=== PATIENT | female | born 1990 | race Caucasian/White ===

== ENCOUNTER 2018-06-26 09:44 | Outpatient (CLI) | payer BC, SELFPAY ==
[2018-06-26 10:51] LABS: *AMPHETAMINES SCREEN URINE Negative (Negative); *BARBITURATES SCREEN URINE Negative (Negative); *BENZODIAZEPINES SCREEN URINE Negative (Negative); Cannabinoids THC Negative (Negative); Cocaine Screen,Urine Negative (Negative); METHADONE URINE SCREEN Negative (Negative); OPIATES URINE SCREEN Negative (Negative)
[2018-06-26 10:56] LABS: Tricyclic Antidepressants Negative (Negative)
[2018-06-26 11:23] LABS: TSH (W/Ref FT4) 3.42 uIU/mL (0.358-3.74)
[2018-06-26 11:27] LABS: Abs Immature Grans 0.02 k/cumm (0.0-0.09); Absolute Basophil Count 0.03 k/cumm (0.0-0.2); Absolute Eosinophil Count 0.04 k/cumm (0.0-0.7); Absolute Lymphocyte Count 1.79 k/cumm (1.2-3.4); Absolute Monocyte Count 0.65 k/cumm (0.11-0.7); Basophils % 0.3; Eosinophils % 0.4; HGB 13.5 g/dL (12.0-15.5); Immature Grans % 0.2; Lymphocytes % 17.8; Mean Corp. HGB Concentration 34.6 g/dL (32.0-36.0); Mean Corpuscular Hemoglobin 29.7 pg (27.0-33.0); Mean Corpuscular Volume 85.9 fL (80-95); Mean Platelet Volume 11.3 fL (8.0-11.0); Monocytes % 6.5; Neutrophils % 74.8; Platelet Count 193 x1000/uL (130-400); RBC 4.54 m/cumm (4.00-5.20); RBC Distribution Width 13.5 % (11.7-14.6); White Blood Cell Count 10.03 k/cumm (4.4-10.8)
[2018-06-27 10:37] LABS: HIV-1/2 Ag & Ab Screen Negative (NEGAT)
[2018-06-27 10:38] LABS: Hepatitis B Surface Ag Negative (NEGAT); Hepatitis C Ab w Rflx HCV PCR Negative (NEGAT)
[2018-06-27 13:06] LABS: Varicella IgG Antibody Positive
[2018-06-27 13:10] LABS: Rubella IgG Ab (UVM) Positive; Syphilis Serology (RPR) Negative (Negative)
[2018-07-02 15:29] LABS: Buprenorphine Negative; Norbuprenorphine Negative
== END 2018-06-26 10:04 ==
PROVIDERS: Visit Provider Nurse Practitioner
DX: Z34.91 Encounter for supervision of normal pregnancy, unspecified, first trimester (principal); Z11.4 Encounter for screening for human immunodeficiency virus [HIV]; Z11.59 Encounter for screening for other viral diseases; Z01.84 Encounter for antibody response examination; Z11.3 Encounter for screening for infections with a predominantly sexual mode of transmission
CPT/HCPCS: 80055; 80307; 86787; 86803; 86850; 86900; 86901; 87340; 87389; 84443; 86592; 86762; 87086

== ENCOUNTER 2018-06-26 10:55 | Outpatient (REF) | payer BC, SELFPAY ==
--- NOTE | 2018-06-26 10:00 | PAPFT_PTH ---
PATIENT: Angie Rojo LOC: [facility] U#:[id number] AGE/SX: 28/F ROOM: RE06/26/[address]: Lucila Solorio RN : 1990 BED: DIS: 06/26/2018 SPEC #: [id number] RECD: 06/26/18 12:44 STATUS: MEENA REQ #: [id number] SARAH: 06/26/18 10:[address]: Lucila Solorio DEPT: [facility] Cytology RECD BY: Sarah Gaytan Tissues: 1 - CX/ENDOCX FOR PAP SMEARS Procedures: PAP THIN PREP/UVM Screening Comments: [id number] (CHLAMYDIA/GC) (UNSATISFACTORY FOR EVALUATION)
[2018-06-27 13:53] LABS: Chlamydia Result Negative; GC Result Negative; Specimen Description SEE COMMENTS
== END 2018-06-26 11:15 ==
LOC: LBN 10:55
PROVIDERS: Visit Provider Advanced Practice Midwife
DX: Z12.4 Encounter for screening for malignant neoplasm of cervix (principal); Z11.51 Encounter for screening for human papillomavirus (HPV); Z11.3 Encounter for screening for infections with a predominantly sexual mode of transmission
CPT/HCPCS: 87491; 87591; 88142

== ENCOUNTER 2018-07-14 09:51 | Outpatient (CLI) | payer BC, SELFPAY ==
[2018-07-22 14:34] LABS: Misc Referral (MAYO) See Comments
[2018-07-23 00:37] LABS: Result Summary NEGATIVE; Specimen WB Whole Blood
== END 2018-07-14 10:11 ==
PROVIDERS: Visit Provider Advanced Practice Midwife
DX: Z34.92 Encounter for supervision of normal pregnancy, unspecified, second trimester (principal); Z13.228 Encounter for screening for other metabolic disorders; Z36.89 Encounter for other specified antenatal screening
CPT/HCPCS: 36415; 81329; 81220

== ENCOUNTER 2018-07-31 00:47 | Outpatient (CLI) | payer BC, SELFPAY ==
--- NOTE | 2018-07-31 15:23 | DI.US_ITS ---
SYMPTOMS/DIAGNOSIS: 18-WEEK ANATOMY SURVEY, Z34.90 OBSTETRICAL ULTRASOUND: Many abnormalities cannot be diagnosed. A normal exam does not exclude a congenital anomaly. Radiology No. [id number] LMP: Exam Date: 07/31/18 [facility] wks days on EDC ([facility]) 01/02/19 Confirmed: HISTORY: PREDICTED GESTATIONAL AGE NUMBER 17+6 weeks with a range of 16+6 weeks to 18+6 weeks. 1 Determined by___1STUS___LMP_X__HISTORY PLACENTA PRESENTATION Grade I Cephalic___ Anterior___Posterior___ Breech____ Right Left__X Transverse(head right___ Fundal_X__Low-lying___Previa___ Transverse(head left___ Varying__X____ BIOMETRY AMNIOTIC FLUID BPD: 40 mm 18+1 weeks Normal HC: 151 mm 18+1 weeks AC: 126 mm 18+1 weeks FL: 26 mm 17+6 weeks AMNIOTIC FLUID INDEX >26 WK CRL: mm weeks Cisterna Magna: 4 mm CI: 81 RUQ: LUQ Cerebellum: 1.7 cm EFW: 221 grams Percentile: 56th RLQ: LLQ Total: cms Composite AGE= 18+1 wks EDC by US: 12/31/18 BIOPHYSICAL PROFILE ANATOMY IDENTIFIED SCORE 0/2 Heart: 4-Chamber_X__Rate:BPM 143 LVOT:____X RVOT:___X Amniotic Fluid(>2cms)____ Stomach:____X___ Kidneys:___X____ Respirations (>30 secs) Bladder:___X Post. Fossa:___X Body Flex/Extension 3-vessel cord:___X____Ventricles:____X Cord insertion:__X___ Lips:_X___ Extremity Flex/Extension Spinal morphology:__X Nose:__X___ Total Score= Palate:__X NS=not seen COMMENTS: Routine examination. There is a single living intrauterine gestation. Estimated sonographic age is 18 weeks 1 day. No or placental abnormalities are identified. IMPRESSION: Single living intrauterine gestation. Estimated gestational age is 18 weeks 1 day.
[2018-08-04 12:32] LABS: AFP 61.2 ng/mL; Calculated age at EDD 27 years; Cigarette smoking status non-smoker; Down syndrome maternalage risk 1/920; GA used in risk estimate Dates estimate; INHIBIN 104 pg/mL; IVF Pregnancy No; Initial or repeat testing Initial testing; Insulin dependent diabetes No; Maternal Weight 122 lbs; Number of Fetuses 1; Physician Phone Number 802-748-7300; Prev Down(T21)/Trisomy Pregnan No; Prev Pregnancy w/NTD No; RECOMMENDED FOLLOW UP None.; Results Summary Normal risk; hCG, TOTAL 21.4 IU/mL; hCG, TOTAL MoM 0.75 MoM; uE3 1.31 ng/mL; uE3 MoM 0.91 MoM
== END 2018-07-31 01:07 ==
PROVIDERS: Visit Provider Advanced Practice Midwife
DX: Z34.92 Encounter for supervision of normal pregnancy, unspecified, second trimester (principal); Z36.89 Encounter for other specified antenatal screening
CPT/HCPCS: 36415; 81511; 76805

== ENCOUNTER 2018-10-17 02:52 | Outpatient (CLI) | payer BC, SELFPAY ==
[2018-10-17 08:18] LABS: HCT 35.3 % (36.0-46.0); Mean Corpuscular Hemoglobin 29.3 pg (27.0-33.0); Mean Corpuscular Volume 86.1 fL (80-95); Mean Platelet Volume 10.2 fL (8.0-11.0); Platelet Count 201 x1000/uL (130-400); RBC Distribution Width 12.1 % (11.7-14.6); White Blood Cell Count 8.48 k/cumm (4.4-10.8)
[2018-10-17 08:52] LABS: Glucose,1 Hr (Glucola) 106 mg/dL (80-140)
== END 2018-10-17 03:12 ==
PROVIDERS: Visit Provider Advanced Practice Midwife
DX: Z34.93 Encounter for supervision of normal pregnancy, unspecified, third trimester (principal)
CPT/HCPCS: 36415; 82950; 85027

== ENCOUNTER 2018-12-04 11:58 | Outpatient (REF) | payer BC, SELFPAY ==
[2018-12-04 13:32] LABS: *AMPHETAMINES SCREEN URINE Negative (Negative); *BARBITURATES SCREEN URINE Negative (Negative); *BENZODIAZEPINES SCREEN URINE Negative (Negative); Cannabinoids THC Negative (Negative); Cocaine Screen,Urine Negative (Negative); METHADONE URINE SCREEN Negative (Negative); OPIATES URINE SCREEN Negative (Negative)
[2018-12-04 13:34] LABS: Tricyclic Antidepressants Negative (Negative)
[2018-12-08 13:58] LABS: Buprenorphine Negative; Norbuprenorphine Negative
== END 2018-12-04 12:18 ==
LOC: LBN 11:58
PROVIDERS: Visit Provider Advanced Practice Midwife
DX: Z34.93 Encounter for supervision of normal pregnancy, unspecified, third trimester (principal); Z36.85 Encounter for antenatal screening for Streptococcus B
CPT/HCPCS: 80307; 87081

== ENCOUNTER 2018-12-11 16:23 | Outpatient (CLI) | payer BC, SELFPAY | END 2018-12-11 16:43 | PROVIDERS: Visit Provider Advanced Practice Midwife | DX: O36.8130 Decreased fetal movements, third trimester, not applicable or unspecified (principal); Z3A.37 37 weeks gestation of pregnancy | CPT/HCPCS: 59025 ==

== ENCOUNTER 2018-12-18 16:40 | Outpatient (CLI) | payer BC, SELFPAY | END 2018-12-18 17:00 | PROVIDERS: Visit Provider Advanced Practice Midwife | DX: O76 Abnormality in fetal heart rate and rhythm complicating labor and delivery (principal); Z3A.38 38 weeks gestation of pregnancy; O36.8130 Decreased fetal movements, third trimester, not applicable or unspecified ==

== ENCOUNTER 2018-12-19 08:45 | Observation (INO) | payer BC, SELFPAY ==
[2018-12-19 11:17] LABS: HCT 35.5 % (36.0-46.0); HGB 11.8 g/dL (12.0-15.5); Mean Corp. HGB Concentration 33.2 g/dL (32.0-36.0); Mean Corpuscular Hemoglobin 26.2 pg (27.0-33.0); Mean Corpuscular Volume 78.9 fL (80-95); Mean Platelet Volume 11.5 fL (8.0-11.0); Platelet Count 248 x1000/uL (130-400); RBC Distribution Width 12.9 % (11.7-14.6); White Blood Cell Count 12.05 k/cumm (4.4-10.8)
[2018-12-19] MEDS: Terbutaline 1 MG/ML VIAL 0.5 MG SC (12:08)
--- NOTE | 2018-12-19 13:27 | W.PM.OP ---
Date of service: 12/19/18 Operative Note DATE OF PROCEDURE: 12/19/18 PRE-OP DIAGNOSIS: Breech presentation POST-OP DIAGNOSIS: same PROCEDURE: Attempted external cephalic version SURGEON: Damari Yanez LEGAL WRITING PROFESSOR: Frederick Carbajal ANESTHESIA: none ESTIMATED BLOOD LOSS: 0 PATHOLOGY: none sent COMPLICATIONS: None Patient's condition: stable Indications: 28-year-old G1, P0 female currently 38 weeks estimated gestational age she was diagnosed with a breech presentation on 12/18/2018. Patient was counseled regarding an external cephalic version versus a primary delivery and opted for an external cephalic version. Procedure Description: Patient arrived on the center after being n.p.o. Informed consent was obtained. She was counseled regarding the risk of less than 5% chance of injury to the uterus or fetus. She is aware that there is possibility of emergent delivery for change in heart rate or nonreassuring surveillance. A saline lock and was inserted and lactated Ringer's IV solution at 125 cc an hour was started. The patient was placed on the heart rate monitor heart rate category 1 with occasional contractions. She received 0.5 mg of subcutaneous terbutaline. Patient was placed in the dorsal supine position and breech presentation was confirmed by use of the bedside ultrasound. spine to the maternal left. Amniotic fluid subjectively normal. Dr. Frederick Carbajal and I performed the procedure in the following manner; the presenting part was lifted out of the pelvis with gentle upward pressure and the head directed towards the maternal right; the head was successfully moved approximately 45 degrees and the procedure stopped because of patient discomfort. Reexamination of the head by ultrasound showed it had return to the zach breech presentation. heart rate was in the 130 range. Another attempt and is using the same technique and in and in the same direction was performed with no further movement of the head past 45 degrees and a counterclockwise direction. The heart rate was assessed noted to be in the 80 range. The procedure was stopped at that and the patient was placed in the left lateral position administered oxygen by facemask and IV fluid was increased rate of 500 cc an hour. The heart rate recovered after the 2 and half minutes to the baseline of 140. With moderate variability. The patient was kept in the left lateral position for another 15 minutes and then repositioned to the dorsal supine position. She was monitored for approximately 2 hours after the procedure heart rate remained reassuring. The patient has agreed to a scheduled delivery in the near future. She will be discharged home with follow-up with myself on 12/22/2018.
--- NOTE | 2018-12-19 13:37 | ROE_ITS ---
Date of service: 12/19/18 Operative Note DATE OF PROCEDURE: 12/19/18 PRE-OP DIAGNOSIS: Breech presentation POST-OP DIAGNOSIS: same PROCEDURE: Attempted external cephalic version SURGEON: Damari Yanez CASE LOADER OPERATOR: Frederick Carbajal ANESTHESIA: none ESTIMATED BLOOD LOSS: 0 PATHOLOGY: none sent COMPLICATIONS: None Patient's condition: stable Indications: 28-year-old G1, P0 female currently 38 weeks estimated gestational age she was diagnosed with a breech presentation on 12/18/2018. Patient was counseled regarding an external cephalic version versus a primary delivery and opted for an external cephalic version. Procedure Description: Patient arrived on the center after being n.p.o. Informed consent was obtained. She was counseled regarding the risk of less hector n 5% chance of injury to the uterus or fetus. She is aware that there is possibility of emergent delivery for change in heart rate or nonreassuring surveillance. A saline lock and was inserted and lactated Ringer's IV solution at 125 cc an hour was started. The patient was placed on the heart rate monitor heart rate category 1 with occasional contractions. She received 0.5 mg of subcutaneous terbutaline. Patient was placed in the dorsal supine position and breech presentation was confirmed by use of the bedside ultrasound. spine to the maternal left. Amniotic fluid subjectively normal. Dr. Frederick Carbajal and I performed the procedure in the following manner; the presenting part was lifted out of the pelvis with gentle upward pressure and the head directed towards the maternal right; the head was successfully moved approximately 45 degrees and the procedure stopped because of patient discomfort. Reexamination of the head by ultrasound showed it had return to the zach breech presentation. heart rate was in the 130 range. Another attempt and is using the same technique and in and in the same direction was performed with no further movement of the head past 45 degrees and a counterclockwise direction. The heart rate was assessed noted to be in the 80 range. The procedure was stopped at that and the patient was placed in the left lateral position administered oxygen by facemask and IV fluid was increased rate of 500 cc an hour. The heart rate recovered after the 2 and half minutes to the baseline of 140. With moderate variability. The patient was kept in the left lateral position for another 15 minutes and then repositioned to the dorsal supine position. She was monitored for approximately 2 hours after the procedure heart rate remained reassuring. The patient has agreed to a scheduled delivery in the near future. She will be discharged home with follow-up with myself on 12/22/2018.
== END 2018-12-19 14:40 | disposition home or self-care (01) ==
PROVIDERS: Advanced Practice Midwife; Admitting Provider Obstetrics & Gynecology; Visit Provider Obstetrics & Gynecology
DX: O32.1XX0 Maternal care for breech presentation, not applicable or unspecified (principal); Z3A.38 38 weeks gestation of pregnancy
CPT/HCPCS: 59412; 85027; 86850; 86900; 86901; G0378

== ENCOUNTER 2018-12-26 00:41 | Inpatient (IN) | payer BC, SELFPAY ==
[2018-12-26] MEDS: Lactated Ringers 1,000 ML 125 ML IV ×2 (01:15→04:15)
[2018-12-26 01:44] LABS: ROM Plus Positive
[2018-12-26 02:23] LABS: HCT 33.8 % (36.0-46.0); HGB 11.2 g/dL (12.0-15.5); Mean Corp. HGB Concentration 33.1 g/dL (32.0-36.0); Mean Corpuscular Hemoglobin 25.7 pg (27.0-33.0); Mean Corpuscular Volume 77.5 fL (80-95); Mean Platelet Volume 11.8 fL (8.0-11.0); Platelet Count 233 x1000/uL (130-400); RBC 4.36 m/cumm (4.00-5.20); RBC Distribution Width 13.1 % (11.7-14.6); White Blood Cell Count 10.15 k/cumm (4.4-10.8)
[2018-12-26] MEDS: Azithromycin 500 MG VIAL (02:30)
[2018-12-26] MEDS: Normal Saline 250 ML (02:31)
[2018-12-26] MEDS: Sodium Citrate 30 ML CUP PO (02:37)
[2018-12-26] MEDS: AZITHROMYCIN 500 MG in Normal Saline 250 ML 250 MG IVPB (03:00)
[2018-12-26] MEDS: CLINDAMYCIN 900 MG/50 ML BAG 50 MG IVPB (03:29)
--- NOTE | 2018-12-26 04:17 | W.PM.OP ---
Date of service: 12/26/18 Time of Service: 04:18 Operative Note DATE OF PROCEDURE: 12/26/18 PRE-OP DIAGNOSIS: PROM, Labor Breech presentation POST-OP DIAGNOSIS: same PROCEDURE: Primary low transverse section SURGEON: Sabrina Boothe ANESTHESIA: spinal ESTIMATED BLOOD LOSS: 250 PATHOLOGY: none sent COMPLICATIONS: None Patient was transported to: PACU Patient's condition: stable Implants: none Indications: Term Pregnacy Labor Prom Breech presentation Findings: viable female 6#6oz Apgars 9,9 Procedure Description: Patient to the operating the operating table in a position. Spinal acid was induced without difficulty. She was then placed on the operating table in the dorsal supine position with a left lateral tilt she was prepped in a normal fashion. Walker catheter was placed. A vaginal prep with Betadine was performed she was draped in a normal sterile fashion. After establishing adequate spinal anesthesia a Pfannenstiel incision was made approximately 2 cm above the symphysis pubis and carried down to the underlying fascia the fascia was And extended laterally sharply with the curved Umana scissors. The inferior aspect of the fascia was then grasped bilaterally with Anson clamps tented up and the rectus muscles dissected off sharply. Attention was then turned to the superior aspect and again in a similar fashion was grasped bilaterally with clamps tented up his muscles dissected dissected off sharply. Rectus was in the midline the peritoneum was entered sharply with Metzenbaum scissors this was extended superior and inferiorly with good visualization of the bladder. The bladder blade was positioned in the peritoneum was grabbed onto the potential with the bladder flap was sharply into the bladder blade was repositioned and the uterine segment previously incised to the underlying cavity. The fluid was clear. The 's was the left sacral posterior position. The was rotated to sacrum anterior to the 's breech was then to level delivery delivered infant was then turned clockwise in the left arm with chorionic clockwise and was delivered the head was delivered with a loss of movement. There was no vocal cord. The cord was clamped to cut the infant handed off to waiting PG&E. Cord blood was obtained placenta was expressed manually and the uterus was exteriorized and cleared of all clots and debris. The uterus was closed in 2 layers of 0 Vicryl the first layer single interrupted 10*running locked fashion second layer of 0 Vicryl was placed in an imbricating layer to achieve this is reinspected and found to hemostatic the uterus was returned to the abdomen the gutters were cleared of all clots and debris the incision was inspected and found to be hemostatic. 3 Montse clamps were used to grasp the patient was closed 2-0 Vicryl in a running fashion times hopefully oriented and found to be hemostatic the muscle was reapproximated with 3 interrupted sutures of 0 Vicryl. The fascia was closed from each apices with 0 Vicryl and tied in the middle subcuticular layer was copiously irrigated closed with 2 0 plain and the skin was closed with 4-0 Vicryl in a subcuticular fashion status lap needle count was correct x2 and the patient was taken to recovery room in stable condition this is a dictation please cc copy 1 to the patient's hospital record 1 to my office.
[2018-12-26] MEDS: Ketorolac 30 MG/ML VIAL IVP ×4 (04:25→22:06)
--- NOTE | 2018-12-26 04:26 | ROE_ITS ---
Date of service: 12/26/18 Time of Service: 04:18 Operative Note DATE OF PROCEDURE: 12/26/18 PRE-OP DIAGNOSIS: PROM, Labor Breech presentation POST-OP DIAGNOSIS: same PROCEDURE: Primary low transverse section SURGEON: Sabrina Boothe ANESTHESIA: spinal ESTIMATED BLOOD LOSS: 250 PATHOLOGY: none sent COMPLICATIONS: None Patient was transported to: PACU Patient's condition: stable Implants: none Indications: Term Pregnacy Labor Prom Breech presentation Findings: viable female 6#6oz Apgars 9,9 Procedure Description: Patient to the operating the operating table in a position. Spinal acid was induced without difficulty. She was then placed on the operating table in the dorsal supine position with a left lateral tilt she was prepped in a normal fashion. Walker catheter was placed. A vaginal prep with Betadine was performed she was draped in a normal sterile fashion. After establishing adequate spinal anesthesia a Pfannenstiel incision was made approximately 2 cm above the symphysis pubis and carried down to the underlying fascia the fascia was And extended laterally sharply with the curved Umana scissors. The inferior aspect of the fascia was then grasped bilaterally with Anson clamps tented up and the rectus muscles dissected off sharply. Attention was then turned to the superior aspect and again in a similar fashion was grasped bilaterally with clamps tented up his muscles dissected dissected off sharply. Rectus was separa jerica in the midline the peritoneum was entered sharply with Metzenbaum scissors this was extended superior and inferiorly with good visualization of the bladder. The bladder blade was positioned in the peritoneum was grabbed onto the potential with the bladder flap was sharply into the bladder blade was repositioned and the uterine segment previously incised to the underlying cavity. The fluid was clear. The infant's was the left sacral posterior position. The was rotated to sacrum anterior to the 's breech was then to level delivery delivered infant was then turned clockwise in the left arm with chorionic clockwise and was delivered the head was delivered with a loss of movement. There was no vocal cord. The cord was clamped to cut the handed off to waiting PG&E. Cord blood was obtained placenta was expressed manually and the uterus was exteriorized and cleared of all clots and debris. The uterus was closed in 2 layers of 0 Vicryl the first layer single interrupted 10*running locked fashion second layer of 0 Vicryl was placed in an imbricating layer to achieve this is reinspected and found to hemostatic the uterus was returned to the abdomen the gutters were cleared of all clots and debris the incision was inspected and found to be hemostatic. 3 Montse clamps were used to grasp the patient was closed 2-0 Vicryl in a running fashion times hopefully oriented and found to be hemostatic the muscle was reapproximated with 3 interrupted sutures of 0 Vicryl. The fascia was closed from each apices with 0 Vicryl and tied in the middle subcuticular layer was copiously irrigated closed with 2 0 plain and the skin was closed with 4-0 Vicryl in a subcuticular fashion status lap needle count was correct x2 and the patient was taken to recovery room in stable condition this is a dictation please cc copy 1 to the patient's hospital record 1 to my office.
[2018-12-26 05:10] VITALS: BP 109/74; PULSE 61; RESP 16; TEMP 36.3; O2SAT 99
[2018-12-26 07:13] LABS: HCT 31.9 % (36.0-46.0); HGB 10.4 g/dL (12.0-15.5); Mean Corp. HGB Concentration 32.6 g/dL (32.0-36.0); Mean Corpuscular Hemoglobin 25.4 pg (27.0-33.0); Mean Platelet Volume 11.9 fL (8.0-11.0); Platelet Count 220 x1000/uL (130-400); RBC 4.09 m/cumm (4.00-5.20); RBC Distribution Width 12.8 % (11.7-14.6); White Blood Cell Count 20.61 k/cumm (4.4-10.8)
[2018-12-26] MEDS: Normal Saline Flush 10 ML SYR IVP (10:08)
--- NOTE | 2018-12-26 17:32 | W.PM.PROGNOT ---
Date of Service Date of service: 12/26/18 Time of Service: 08:32 Assessment and Plan (1) delivery delivered: Current visit: Yes Status: Acute pod#0 DOING WELL advance diet discontinue mcduffie ambulate consult today Subjective Patient reports: tolerating liquids well Interval history since last seen: s/p PCS for breech presentation pain controlled duramorph/toradol no N/V initiating BF would like some help with positioning Exam Narrative Exam Narrative: comfortable Resp Effort & Inspection: normal respiratory effort Auscultation: clear to auscultation bilaterally Cardio Palpation: normal PMI Rate: regular rate Rhythm: regular rhythm Heart Sounds: S1 normal and S2 normal GI Inspection: normal to inspection Palpation: soft Other: Incision C/D/I Extrem General: normal to inspection and other (negITIVE Belén'S) Objective Objective Clinical Data: Abnormal lab results 12/26/18 12/26/18 Range/Units 02:10 06:46 WBC 20.61 H D (4.4-10.8) k/cumm Hgb 11.2 L 10.4 L (12.0-15.5) g/dL Hct 33.8 L 31.9 L (36.0-46.0) % MCV 77.5 L 78.0 L (80-95) fL MCH 25.7 L 25.4 L (27.0-33.0) pg MPV 11.8 H 11.9 H (8.0-11.0) fL Vital Signs Temperature 36.3 C L 12/26/18 05:10 Temperature Source Oral 12/26/18 05:10 Pulse 61 12/26/18 05:10 Respiratory Rate 16 12/26/18 05:10 Blood Pressure 109/74 12/26/18 05:10 Pulse Oximetry 99 12/26/18 05:10 Oxygen Delivery Method Room Air 12/26/18 05:10 Oxygen Flow Rate 0 12/26/18 05:10 Pain Level 5 12/26/18 15:31 Intake & Output 12/25/18 12/26/18 12/26/18 23:59 11:59 23:59 Intake Total 1600 / 1600 Output Total 400 / 400 Balance 1200 / 1200 Weight 67.132 kg Intake: IV 1600 / 1600 Output: Urine 150 / 150 Estimated Blood Loss 250 / 250 Other: Urine Color Pale Urine Appearance Clear Laboratory Results WBC 20.61 k/cumm (4.4-10.8) H D 12/26/18 06:46 RBC 4.09 m/cumm (4.00-5.20) 12/26/18 06:46 Hgb 10.4 g/dL (12.0-15.5) L 12/26/18 06:46 Hct 31.9 % (36.0-46.0) L 12/26/18 06:46 MCV 78.0 fL (80-95) L 12/26/18 06:46 MCH 25.4 pg (27.0-33.0) L 12/26/18 06:46 MCHC 32.6 g/dL (32.0-36.0) 12/26/18 06:46 RDW 12.8 % (11.7-14.6) 12/26/18 06:46 Plt Count 220 x1000/uL (130-400) 12/26/18 06:46 MPV 11.9 fL (8.0-11.0) H 12/26/18 06:46 Membranes Rupture Positive 12/26/18 01:25 Patient ABO/Rh A Positive 12/26/18 02:10 Antibody Screen Negative 12/26/18 02:10
[2018-12-26] MEDS: Acetaminophen 325 MG TAB 650 MG PO (18:21)
[2018-12-27] MEDS: Acetaminophen 325 MG TAB 650 MG PO ×4 (02:48→15:39)
[2018-12-27] MEDS: Ibuprofen 800 MG TAB PO ×2 (08:27→15:40)
[2018-12-27] MEDS: Docusate Sodium 100 MG CAP PO (20:38)
[2018-12-27] MEDS: oxyCODONE 5 mg/Acetaminophen 325 mg TAB PO (23:10)
[2018-12-28] MEDS: oxyCODONE 5 mg/Acetaminophen 325 mg TAB PO ×2 (04:20→23:00)
[2018-12-28] MEDS: Ibuprofen 800 MG TAB PO ×3 (04:20→18:21)
[2018-12-28 06:59] LABS: HGB 10.5 g/dL (12.0-15.5); Mean Corp. HGB Concentration 31.8 g/dL (32.0-36.0); Mean Corpuscular Hemoglobin 25.5 pg (27.0-33.0); Mean Corpuscular Volume 80.1 fL (80-95); Mean Platelet Volume 10.6 fL (8.0-11.0); Platelet Count 214 x1000/uL (130-400); RBC 4.12 m/cumm (4.00-5.20); RBC Distribution Width 13.5 % (11.7-14.6)
[2018-12-28] MEDS: Acetaminophen 325 MG TAB 650 MG PO ×3 (08:30→18:21)
--- NOTE | 2018-12-28 09:03 | DSE_ITS ---
Date of service: 12/29/18 Time of Service: 12:13 DS: Diagnosis Discharge Diagnosis (1) delivery delivered: Status: Acute Discharge Plan Disposition Patient Disposition: HOME Condition: Good Discharge Details Reason For Visit: RULE OUT RUPTURE OF MEMBRANES Admit Date/Time: 12/26/18 00:41 Admit Provider: Sabrina Boothe Attending Provider: Sabrina Boothe Primary Care Provider: None,None Hospital Course Hospital Course: Patient presented with spontaneous rupture of membranes on the morning of 12/26/2018. She underwent a unscheduled low transverse delivery without complications. Viable female infant weighing 6 pounds 6 ounces named Re. Postop course was uncomplicated. Initally planning to be discharged to home of POD3 she was having considerable discomfort from incision and needed additional assist with . By postop day #4 successfully pumping breast milk and had been assisted by [facility] hcm consultant. She was using ibuprofen and acetaminophen for pain control. She was discharged home with 5 tablets of Percocet 5/325 for break through pain and instructions to use [id number] NSAIDs as her primary method of pain control. She will be seen in [facility] in one and a half weeks for postop check. Will discuss Norethindrone OCPs at time of 6w visit with CNM service. Home Meds and New Rx's Prescriptions: No Action Gummy 400 mcg-35 mg -25 mg-5 mg tablet,chewable 1 tab PO RF: 0 ibuprofen 200 mg capsule 200 mg PO Q6H PRNRF: 0 acetaminophen [Tylenol] 325 mg capsule 325 mg PO ONCE PRNRF: 0 levonorg-eth estrad triphasic [Trivora (28)] 50-30 (6)/75-40 (5)/125-30(10) tablet 1 tab PO DAILY Qty: 28 RF: 12 Discharge Instructions Additional Instructions: Patient will follow-up with Dr. Yanez in approximately 1 1/2weeks for inspection of incision. Stand Alone Forms: BC Instructions, BC Discharge Instruc Activity:: Activity as Tolerated Equipment/Supplies:: No Equipment Needed Diet:: As Tolerated Discharge Orders Discharge Orders: Discharge Order (Routine); Ordered 12/29/18 Ordered By: Damari Yanez Discharge Data Discharge Date/Time-TO BE ENTERED AT DEPARTURE: 12/29/18 13:35 Exam Const General: no acute distress Orientation: alert, awake and oriented x3 Chest Breast inspection: normal inspection of the breasts Resp Effort & Inspection: normal respiratory effort Auscultation: clear to auscultation bilaterally Cardio Rate: regular rate Rhythm: regular rhythm GI Inspection: normal to inspection and scar (Well approximated without erythema or induration) Palpation: soft, mass (Uterus is involuting appropriately) and tender (Appropriate mild tenderness.) General: deferred Skin General skin exam: no rashes or lesions noted Extrem General: full ROM, capillary refill normal, no calf tenderness and edema (1+ pretibial tibial bilateral edema) Psych Appearance: grossly normal Mental Status: mental status grossly normal Speech and Movement: speech and movement normal Mood: congruent mood Affect: normal affect DS: Data Vitals/I&O Vitals and I&O: Vital Signs Temperature 97.3 F L 12/26/18 05:10 Temperature Source Oral 12/26/18 05:10 Pulse 61 12/26/18 05:10 Respiratory Rate 16 12/26/18 05:10 Blood Pressure 109/74 12/26/18 05:10 Pulse Oximetry 99 12/26/18 05:10 Oxygen Delivery Method Room Air 12/26/18 05:10 Oxygen Flow Rate 0 12/26/18 05:10 Pain Level 4 12/28/18 08:30 Labs on day of discharge: Labs from last 24 hours 12/28/18 06:47 WBC 10.30 RBC 4.12 Hgb 10.5 L Hct 33.0 L MCV 80.1 MCH 25.5 L MCHC 31.8 L RDW 13.5 Plt Count 214 MPV 10.6 PFSH Medical History (Updated 02/13/19 @ 12:52 by Lucila Solorio CNM) Pain on intercourse (Resolved) Positive test (Acute) Surgical History (Updated 12/28/18 @ 09:06 by Damari Yanez MD) History of delivery (Chronic) 12/26/2018. LTCS. Breech presentation. Tucker bryant:. Social History (Updated 12/28/18 @ 09:09 by Damari Yanez MD) Smoking/Tobacco Use Status: Never Alcohol Intake: current Alcohol Intake frequency: a few times a month Drug use: Never Substance use type: does not use Household members: spouse and other Details: H-Anita Chase-Re. Patient has children from a previous relationship Number of Children: 1 Female Reproductive History Menstrual control method: none History History 1 Para 1 Hx # Term Pregnancies 0 Multiple births 0 Hx # Pregnancies 0 Ectopic pregnancies 0 AB induced 0 Hx Number of Living Children 1 AB spontaneous 0 Past Pregnancies Del. Date GA/Weeks # Outcome [facility] Successful 6 lb 6 oz Female K Tl Delivery Date: 12/26/18 LTCS. Previously diagnosed breech presentation with an unsuccessful ECV. Spontaneous labor a week prior to scheduled . 'Re'. Damari Yanez
[2018-12-29] MEDS: Ibuprofen 800 MG TAB PO (06:05)
[2018-12-29] MEDS: Acetaminophen 325 MG TAB 650 MG PO (06:05)
--- NOTE | 2019-01-01 13:44 | ROE_ITS ---
REPORT OF OPERATIVE PROCEDURE DATE OF PROCEDURE December 26, 2018 PREOPERATIVE DIAGNOSES Prolonged labor, breech presentation. POSTOPERATIVE DIAGNOSES Prolonged labor, breech presentation. PROCEDURE Primary low transverse caesarean section. SURGEON Sabrina Boothe M.D. ANESTHESIA Spinal. ESTIMATED BLOOD LOSS 250 cc PATHOLOGY None. COMPLICATIONS None. DISPOSITION Transported to PACU in stable condition. IMPLANTS None. INDICATIONS Term and labor prolonged, breech presentation. FINDINGS Viable female , 6 pounds, 6 ounces, Apgars 9 and 9. PROCEDURE DESCRIPTION The patient was taken to the Operating Room and properly identified. She was then placed on the Opera ting Table in the dorsal supine position, then was placed in the seated position and Spinal anesthesi a was induced without difficulty. She was then placed on the Operating Table in the dorsal supine po sition with a left lateral tilt. She was prepped and draped in normal sterile fashion. A Walker cathet er was placed. A vaginal prep with Betadine was performed. SCDs boots were placed. After establishing adequate spinal anesthesia. A formal time-out procedure was then performed confirming patient and p rocedure. A Pfannenstiel incision was made approximately 2 centimeters above the symphysis pubis, and carried d own to underlying fascia. The fascia was nicked in the midline and extended laterally with the curved Umana scissors. The inferior aspect of the fascia was then grasped bilaterally with the Peter clamps , tented up and the rectus muscles dissected off sharply. Attention was then turned to the superior aspect, and again, in a similar fashion, it was grasped gl aterally with the Peter clamps, tented up and the rectus muscles dissected off sharply. The rectus muscles were in the midline and the peritoneum was entered bluntly. This was extended supe rior and then inferiorly with good visualization of the bladder. The bladder blade was then positione d. The vesicouterine peritoneum was grasped with the Pick- Ups, tented up and entered sharply. The b ladder flap was then created both digitally and sharply with the Metzenbaum scissors. The bladder vasquez de was re-positioned and the lower uterine segment was transversely incised. The uterine incision wa s manually extended. The surgeon reached her hand into the uterine cavity and the was rotated from sacrum posterior to sacrum anterior, and was delivered to the level of the shoulders. The infant was then turned clockwise and the left arm was delivered and then turned counter clockwise and the r ight arm was delivered without any difficulty. The infant's head was delivered without nuchal cord by Mauriceau maneuver. The cord was clamped x2, cut and the infant was handed off to the waiting M.D. The uterus was exteriorized and cleared of all clots and debris. The uterus was closed in two layer s of #0 Vicryl. The first layer a single running suture of #0-Vicryl in a locked fashion, and a secon d layer of #0-Vicryl was placed in an imbricating fashion to achieve hemostasis. The incision was re- inspected and found to be hemostatic. The uterus was returned to the abdomen. The gutters were cleare d of clots and debris. The uterine incision was inspected and found to be hemostatic. Three Montse cla mps were used to grasp the peritoneum, and the peritoneum was closed with #2-0 Vicryl in a running fa shion. The rectus muscles were closed with #0-Vicryl in an interrupted fashion. The muscle and subfas cial layer were hemostatic. The fascia was then closed from each apices with #0-Vicryl and tied in t he middle. The subcuticular layer was copiously irrigated and closed with #2-0 plain. The skin was c losed with #4-0 Vicryl in subcuticular fashion. Sponge, lap, needle and instrument counts were correc t x2 and the patient was taken to the Recovery Room in stable condition. CC: [facility]
== END 2018-12-29 13:35 | disposition home or self-care (01) | DRG 788 ==
PROVIDERS: Obstetrics & Gynecology Gynecology; Admitting Provider Obstetrics & Gynecology; Visit Provider Obstetrics & Gynecology
PROC: 10D00Z1 Extraction of Products of Conception, Low, Open Approach (ICD-10-PCS; CPT 59514; principal; 2018-12-26 02:50)
DX: O42.02 Full-term premature rupture of membranes, onset of labor within 24 hours of rupture (principal); O32.1XX0 Maternal care for breech presentation, not applicable or unspecified; Z3A.39 39 weeks gestation of pregnancy; Z37.0 Single live birth; G47.33 Obstructive sleep apnea (adult) (pediatric); O92.79 Other disorders of lactation; G89.18 Other acute postprocedural pain; Z67.10 Type A blood, Rh positive
CPT/HCPCS: 59514; 36415; 84112; 85027; 86850; 86900; 86901; NC; J0456; J1885; J2370; J2405; J2590; J3010; J3490

== ENCOUNTER 2019-02-13 11:33 | Outpatient (REF) | payer BC, SELFPAY ==
--- NOTE | 2019-02-13 10:55 | PAPFT_PTH ---
PATIENT: Angie Rojo LOC: [facility] U#:[id number] AGE/SX: 28/F ROOM: RE02/13/[address]: Lucila Solorio RN : 1990 BED: DIS: 02/13/2019 SPEC #: [id number] RECD: 02/13/19 12:48 STATUS: MEENA REQ #: [id number] SARAH: 02/13/19 10:[address]: Lucila Solorio DEPT: [facility] Cytology RECD BY: Sarah Gaytan ENTERED: 02/13/19 12:49 SP TYPE: PAPFT EBONIE DR: Lelo Tissues: 1 - CX/ENDOCX FOR PAP SMEARS Procedures: PAP THIN PREP/UVM Screening Comments: [id number]
== END 2019-02-13 11:53 ==
LOC: LBN 11:33
PROVIDERS: Visit Provider Advanced Practice Midwife
DX: R10.2 Pelvic and perineal pain (principal); Z12.4 Encounter for screening for malignant neoplasm of cervix
CPT/HCPCS: 88142; 87086

== ENCOUNTER 2019-12-17 18:55 | Emergency (ER) | payer BC, SELFPAY ==
[2019-12-17] VITALS (16 sets, daily range): BP systolic 97–128; BP diastolic 49–95; PULSE 61–158; RESP 11–31; TEMP 36.6–36.7; O2SAT 96–100
--- NOTE | 2019-12-17 19:42 | DI.RAD_ITS ---
EXAM: XR PORTABLE CHEST AP CLINICAL HISTORY: SOB. TECHNIQUE: 2D digital imaging was performed. COMPARISON: No exams were available for comparison FINDINGS: LUNGS: Clear. No pleural abnormality seen. HEART: Normal. MEDIASTINUM: Normal. OTHER FINDINGS: None. IMPRESSION: No acute pulmonary findings. DATA REPOSITORY: RADIATION DOSE DELIVERED:
--- NOTE | 2019-12-17 19:48 | W.ED.GENAD ---
Discharge Plan Disposition Patient Disposition: HOME Condition: Stable Discharge Details Chief Complaint: SOB Clinical Impression: SOB (shortness of breath) Primary Care Provider: [facility] Provider: Joanna Campo Home Meds and New Rx's Prescriptions: No Action levonorg-eth estrad triphasic [Trivora (28)] 50-30 (6)/75-40 (5)/125-30(10) tablet 1 tab PO DAILY Qty: 28 RF: 12 Discharge Instructions Instructions: Dyspnea (ED) Additional Instructions: Drink plenty of fluids. Rest activities as tolerated. Your evaluation today is quite reassuring. Please make prompt follow-up with PCP. For consideration of echocardiogram Nothing to indicate blood clot in your lung. Your thyroid function was minimally elevated, please follow-up with your primary care doctor for this finding. Have outpatient Covid test as discussed. Please plan to convalesce at home until your results have returned. Return for any worsening, concerns or alarming symptoms sooner if needed Medical Decision Making Is a 29-year-old patient presenting to the emergency room for complaints of shortness of breath. Please see HPI for further details of history. Patient has had 2 weeks of shortness of breath. Was seen at PCP office and had a drop in her oxygen saturation when ambulating and increasing heart rate. Patient sent to ER for further evaluation. Patient does report significant increase in stress recently. Patient is reporting some anxiety although unsure whether anxiety is related to her shortness of breath. Patient does have a just shy 1-year-old child at home. Patient is currently taking control. Denies any concern of . Patient does report mild intermittent heart fluttering. Denies obvious energy change. Patient denies any other concerns or complaints. Benign physical exam. Nursing staff did have patient not in place for several minutes while on O2 saturation when she first arrived. Patient did desaturate to 89% and had a heart rate increased to 140. Initial vital signs noted to be normal. We will plan to check d-dimer as well as baseline labs and TSH. Will check portable chest. Patient denies any other associated Covid symptoms. Patient agrees with this plan of care. Ycfia-sa-viij testing negative Patient's EKG reveals a heart rate of 87, sinus rhythm, and occasional ectopic ventricular beat. Patient has a QTC of 452. right atrial enlargement reviewed with Dr. Celeste. Patient's portable chest x-ray reveals no acute cardiopulmonary finding. Patient's initial labs reveal normal troponin. No leukocytosis. Mild low potassium. D-dimer normal. TSH noted to be 5.81 however free T4 1.07. Patients vital signs remained normal on the monitor. Spoke with Dr. Hathaway regarding patient's care and vital sign changes noted at PCP office and here strongly recommends obtaining CTA despite d-dimer as d-dimer could be falsely reassuring. Spoke with patient who is willing to stay for recommended CTA. CTA unremarkable for acute findings. No evidence of acute pulmonary embolism, no aortic changes. No pneumothorax, pleural effusion or signs of infection. No cardiomegaly. This again was discussed with Dr. Hathaway who also reviewed patient's EKG. Recommends follow-up with PCP for consideration of echocardiogram as an outpatient. Does not feel patient needs Holter monitor this evening. Recommends discharge home at this time. Discussed with patient who feels comfortable with discharge plan at this time. We will plan to follow-up with PCP. Patient will have Covid testing in the tent tomorrow. Patient has no evidence of ACS at this time. Nothing to indicate pulmonary embolism as etiology of patient's shortness of breath. Given patient's vital sign changes patient differential diagnosis does include pulmonary hypertension. Patient does have a history of sleep apnea and EKG consistent with right atrial enlargement. Discussed this with patient. Did recommend follow-up with PCP for further evaluation as an outpatient. Patient agrees with this plan of care. The patient was stable and requested discharge. Prior to discharge, my usual and customary return precautions were reviewed with the patient - this included follow-up instructions and reasons to return to the Emergency Department if conditions worsens, does not improve as expected, or other new concerns arise. HPI General Date/Time Provider Initiated Documentation: 12/17/19 18:57. HPI Narrative: This is a 29-year-old patient presenting the emergency room for complaints of shortness of breath for last 2 to 3 weeks. Patient was seen at PCP office prior to arrival had an ambulating oxygen saturation during which time her O2 sat dropped into the 60s and she became tachycardic. For this reason she was sent to the emergency room. Patient reports shortness of breath described as feeling as if she is getting 75% of her breath when at rest. Patient denies obvious exertional component. Denies chest pain. Denies any cough. Denies back pain. Denies abdominal pain, nausea or vomiting. Denies any fever, chills or ill feeling. Patient denies any lower leg swelling or pain recently. Patient reports no significant headache or dizziness. Patient does report she has had some difficulty sleeping in the last few weeks. Patient does report significant increase in stress recently and she is trying to sell her home and has a new baby at home almost 1 year old. Patient does report she has had some difficulty, restless sleeping. She typically sleeps with a CPAP which she has not been sleeping with recently as she finds that minimally effective. Patient does report she had a mild sensation of heart racing. No other concerns or complaints at this time. Related Data Home Medications Medication Instructions Recorded Confirmed levonorg-eth estrad triphasic 1 tab PO DAILY #28 tab 02/13/19 12/17/19 50-30 (6)/75-40(5)/125-30(10) tablet Previous Rx's Medication Instructions Recorded levonorg-eth estrad triphasic 1 tab PO DAILY #28 tab 02/13/19 50-30 (6)/75-40(5)/125-30(10) tablet Allergies Allergy/AdvReac Type Severity Reaction Status Date / Time amoxicillin Allergy Severe hives Verified 01/05/19 09:43 General Stated Complaint: SOB DARCY: 3 Review of Systems All systems reviewed & are unremarkable except as noted in HPI and below PFSH Medical History (Updated 12/17/19 @ 22:02 by GORDY Roche) Pain on intercourse (Resolved) Positive test (Acute) Surgical History (Updated 12/28/18 @ 09:06 by Damari Yanez MD) History of delivery (Chronic) 12/26/2018. [facility]. Breech presentation. Tucker bryant:. Social History (Updated 12/28/18 @ 09:09 by Damari Yanez MD) Smoking/Tobacco Use Status: Never Alcohol Intake: current Alcohol Intake frequency: a few times a month Drug use: Never Substance use type: does not use Household members: spouse and other Details: Keshia-Anita Chase-Re. Patient has children from a previous relationship Number of Children: 1 Female Reproductive History Menstrual control method: none History History 1 Para 1 Hx # Term Pregnancies 0 Multiple births 0 Hx # Pregnancies 0 Ectopic pregnancies 0 AB induced 0 Hx Number of Living Children 1 AB spontaneous 0 Past Pregnancies Del. Date GA/Weeks # Outcome Route Wgt Sex Labor Lgth Anesthesia Location Prov Complic 12/26/18 No Successful 2.892 kg Female [place] Delivery Date: 12/26/18 [facility]. Previously diagnosed breech presentation with an unsuccessful ECV. Spontaneous labor a week prior to scheduled . 'Re'. Damari Yanez Exam Narrative Exam Narrative: CONST: Healthy appearing patient, in no acute distress. Well hydrated. Alert and oriented. HENMT: Head nomocephalic, normal to inspection. Atraumatic. Hearing grossly normal. External ear canal no erythema or swelling. TM normal bilaterally. Nose normal to inspection. No rhinnorhea. Normal facial exam. Oral mucosa normal. Tounge normal. Dentition normal. Normal posterior oropharynx. Uvula midline. EYES: General normal appearance. Alignment normal. Eyelids normal. Conjunctiva normal. Sclera normal. PERRL. NECK: Normal visual inspection. FROM. No lymphadenopathy. Trachea midline. No Midline tenderness. CHEST: Normal insepection of the chest. RESP: Normal respiratory effort. Speaking full sentences. No cough. No wheezing. No retractions. Clear to auscaltation. Breath sound equal and present bilaterally. CARDIO: No JVD. Normal PMI. Regular Rate. Regular Rhythm. Normal peripheral pulses. GI: Normal inspection of abdomen. No distension. Soft. Nontender. Bowel sounds present in all 4 quadrants. No rebound. No gaurding. MUSCULOSKELETAL: Normal Gait. FROM of all extremities. Distal neurovascularly intact. Sensation intact distally. SKIN: Normal. Dry. No rashes. NEURO: Alert and awake. Speech clear. PSYCH: Normal affect. Cooperative. Course Vital Signs Vital signs: Vital Signs Temperature 36.6 C 12/17/19 19:02 Pulse 73 12/17/19 19:02 Respiratory Rate 18 12/17/19 19:02 Blood Pressure 128/86 12/17/19 19:02 Pulse Oximetry 98 12/17/19 19:02 Temperature 36.6 C 12/17/19 19:02 Temperature Source Skin 12/17/19 19:02 Pulse 73 12/17/19 19:02 Respiratory Rate 18 12/17/19 19:06 Respiratory Effort Non-Labored 12/17/19 19:06 Respiratory Depth Normal 12/17/19 19:06 Respiratory Pattern Normal 12/17/19 19:06 Blood Pressure 128/86 12/17/19 19:02 Pulse Oximetry 98 12/17/19 19:02 Oxygen Delivery Method Room Air 12/17/19 19:02 Oxygen Flow Rate 0 12/17/19 19:02 Lab/Test Results Lab/Test Results: POC- Test(urine) Negative
--- NOTE | 2019-12-17 19:54 | DI.VRAD_ITS ---
PROCEDURE INFORMATION: Exam: XR Chest, 1 View Exam date and time: 12/17/2019 7:43 PM Age: 29 years old Clinical indication: Shortness of breath TECHNIQUE: Imaging protocol: XR of the chest Views: 1 view. COMPARISON: No relevant prior studies available. FINDINGS: Lungs: Unremarkable. No consolidation. Pleural space: Unremarkable. No pleural effusion. No pneumothorax. Heart/Mediastinum: Unremarkable. No cardiomegaly. Bones/joints: Unremarkable for patient's age. IMPRESSION: No acute cardiopulmonary findings. Dictated and Authenticated by: Yaritza Sheriff MD. Ordering:VIRAL Marshall MD
[2019-12-17 19:58] LABS: ALT 24 U/L (14-59); AST 13 U/L (15-37); Abs Immature Grans 0.01 k/cumm (0.0-0.09); Absolute Basophil Count 0.03 k/cumm (0.0-0.2); Absolute Eosinophil Count 0.09 k/cumm (0.0-0.7); Absolute Lymphocyte Count 2.97 k/cumm (1.2-3.4); Absolute Monocyte Count 0.67 k/cumm (0.11-0.7); Absolute Neutrophil Count 4.09 k/cumm (1.2-6.7); Albumin 4.3 g/dL (3.4-5.0); Alkaline Phosphatase 48 U/L (46-116); Anion Gap 10.4 mmol/L (3-11); BUN 16 mg/dL (7-18); Basophils % 0.4; Bilirubin, Total 0.6 mg/dL (0.2-1.0); CO2 23.6 mmol/L (21.0-32.0); CREATININE 0.99 mg/dL (0.55-1.02); Calcium 9.2 mg/dL (8.5-10.1); Chloride 103 mmol/L (98-107); Eosinophils % 1.1; Glucose 98 mg/dL (74-106); HCT 39.8 % (36.0-46.0); HGB 13.4 g/dL (12.0-15.5); Immature Grans % 0.1 %; Lymphocytes % 37.8; Mean Corp. HGB Concentration 33.7 g/dL (32.0-36.0); Mean Corpuscular Hemoglobin 26.6 pg (27.0-33.0); Mean Platelet Volume 11.9 fL (8.0-11.0); Monocytes % 8.5; Neutrophils % 52.1; Platelet Count 276 x1000/uL (130-400); Potassium 3.2 mmol/L (3.5-5.1); RBC 5.04 m/cumm (4.00-5.20); RBC Distribution Width 14.9 % (11.7-14.6); Sodium 137 mmol/L (136-145); Total Protein 7.9 g/dL (6.4-8.2); Troponin I < 0.05 ng/mL (<0.06); White Blood Cell Count 7.86 k/cumm (4.4-10.8)
[2019-12-17 20:14] LABS: D-Dimer 328 ng/mlFEU (<500)
[2019-12-17 20:50] LABS: TSH (W/Ref FT4) 5.81 uIU/mL (0.36-3.74)
[2019-12-17 21:07] LABS: FREE T4 1.07 ng/dL (0.76-1.46)
[2019-12-17] MEDS: Normal Saline Flush 10 ML SYR IVP (22:42)
[2019-12-17] MEDS: Normal Saline - Diluent 50 ML VIAL IV (22:43)
[2019-12-17] MEDS: Omnipaque 350 MG/ML 100 ML BTL IJ (22:44)
--- NOTE | 2019-12-17 22:45 | DI.CT_ITS ---
EXAM: CT CHEST PE CTA CLINICAL HISTORY: SOB. TECHNIQUE: Imaging Protocol: Axial CT angiography was performed with multi-slice acquisition and mu lti-planar and/or 3D reconstructions. CONTRAST MATERIAL: Intravenous: Omnipaque 350 Contrast volume:structured data in ml COMPARISON: No exams were available for comparison FINDINGS: CT angiography of the chest was performed with intravenous infusion of 59 cc of Omnipaque 350. The lungs are clear. No pleural effusion. Tracheobronchial tree appears intact. No evidence of pulmonary embolic disease. Thoracic aorta is of normal, no thoracic aortic aneurysm or dissection, major branch vessels appear intact. No mediastinal or hilar adenopathy. Images obtained through the upper abdomen show unremarkable appearance of the visualized portions of the liver, spleen, pancreas, adrenals, and kidneys. IMPRESSION: Negative CT angiogram of the chest. No evidence of pulmonary embolic disease. RADIATION DOSE DELIVERED: 281.8mGy.cm Total DLP DATA REPOSITORY: All CT scans at this facility are submitted to the National Radiology Data Registry (NRDR) Dose Index Registry (DIR) with the [employer] (ACR). RADIATION OPTIMIZATION: All CT scans at this facility use at least one of these dose optimization te chniques: automated exposure control; mA and/or kV adjustment per patient size (includes targeted exa ms where dose is matched to clinical indication); or iterative reconstruction.
--- NOTE | 2019-12-17 23:00 | DI.VRAD_ITS ---
PROCEDURE INFORMATION: Exam: CT Angiography Chest With Contrast Exam date and time: 12/17/2019 10:19 PM Age: 29 years old Clinical indication: Shortness of breath TECHNIQUE: Imaging protocol: Computed tomographic angiography of the chest with intravenous contrast. 3D rendering: MIP and/or 3D reconstructed images were created by the technologist. Radiation optimization: All CT scans at this facility use at least one of these dose optimization techniques: automated exposure control; mA and/or kV adjustment per patient size (includes targeted exams where dose is matched to clinical indication); or iterative reconstruction. Contrast material: [id number]; Contrast volume: 59 ml; Contrast route: IN RT FOREARM 18G; COMPARISON: CR XR PORTABLE CHEST AP 10/19/2019 19:38 FINDINGS: Pulmonary arteries: No evidence for pulmonary embolus. Aorta: Unremarkable. No aortic aneurysm. No aortic dissection. Lungs: Unremarkable. No consolidation. No masses. Pleural space: Unremarkable. No pneumothorax. No pleural effusion. Heart: Unremarkable. No cardiomegaly. No pericardial effusion. Lymph nodes: Unremarkable. No enlarged lymph nodes. Bones/joints: Unremarkable for age. No acute fracture. Soft tissues: Unremarkable. IMPRESSION: No acute findings. Dictated and Authenticated by: Yaritza Sheriff MD. Ordering:VIRAL Marshall MD
== END 2019-12-17 23:40 | disposition home or self-care (01) ==
PROVIDERS: Emergency Provider Physician Assistant
DX: R06.02 Shortness of breath (principal); R00.0 Tachycardia, unspecified; R09.02 Hypoxemia; E87.6 Hypokalemia
CPT/HCPCS: 36415; 71275; 80053; 81025; 93005; 99285; 71045; 84439; 84443; 84484; 85025; 85379; 93010; J3490

== ENCOUNTER 2019-12-18 09:15 | Outpatient (CLI) | payer BC, SELFPAY ==
[2019-12-19 23:56] LABS: COVID-19 RT-PCR Result NEGATIVE (Negative)
== END 2019-12-18 09:35 ==
PROVIDERS: Visit Provider Physician Assistant
DX: Z11.59 Encounter for screening for other viral diseases (principal)
CPT/HCPCS: U0003

== ENCOUNTER 2020-01-28 01:28 | Outpatient (CLI) | payer BC, SELFPAY ==
--- NOTE | 2020-01-28 12:30 | DI.US_ITS ---
APPROVED REPORT EXAM: Comprehensive 2D, Doppler, and color-flow Echocardiogram Patient Location: Out-Patient Pre K Lead Teacher: Isis Adame RDCS (AE) Indications: SOB Other Information Study Quality: Good Conclusion Left Ventricle : The left ventricle is normal size. The left ventricular systolic function is normal. The left ventricular ejection fraction is within the normal range. There is normal left ventricular wall thickness. There is normal LV segmental wall motion. The left ventricular diastolic function is normal. LVEF is 55-60%. Right Ventricle : The right ventricle is normal size. The right ventricular systolic function is norm al. The RVSP is 21.1mmHg. Atria : The left atrium size is normal. The right atrium size is normal. Also: There are no hemodynamically significant valvular lesions. Great Vessels : IVC is normal in size and collapses >50% with inspiration. There is no prior study available for comparison. Please see remainder of results for further detail s. Wall motion Left Ventricle The left ventricle is normal size. The left ventricular systolic function is normal. The left ventric ular ejection fraction is within the normal range. There is normal left ventricular wall thickness. T here is normal LV segmental wall motion. The left ventricular diastolic function is normal. There is no ventricular septal defect visualized. LVEF is 55-60%. Right Ventricle The right ventricle is normal size. The right ventricular systolic function is normal. The RVSP is 21 .1mmHg. Atria The left atrium size is normal. The right atrium size is normal. The interatrial septum is intact wit h no evidence for an atrial septal defect. Aortic Valve The aortic valve is normal in structure. There is no aortic valvular stenosis. No aortic regurgitatio n is present. Mitral Valve The mitral valve is normal in structure. No evidence of mitral valve stenosis. Trace mitral regurgita tion. Tricuspid Valve The tricuspid valve is normal in structure. There is no tricuspid valve stenosis. Trace tricuspid reg urgitation. Pulmonic Valve The pulmonary valve is normal in structure. There is no pulmonic valvular stenosis. There is no pulmo alicja valvular regurgitation. Great Vessels The aortic root is normal in size. The ascending aorta is normal in size. Aortic arch is normal in ca liber. IVC is normal in size and collapses >50% with inspiration. Pericardium There is no pericardial effusion. There is no pleural effusion. 2D Dimensions IVSD d PLAX 0.71 cm F: 0.6-1.0 LV Vol A2C d MOD 66.5 mL LVPW d PLAX 0.73 cm F: 0.6 - 1.0 LV Vol A4C d MOD 66.8 mL LVID d PLAX 4.05 cm F: 3.8 - 5.2 LA vol/ BSA A2C s A-L 18.1 mL/m2 LVDs 2.70 cm F: 2.2 - 3.5 LA vol/ BSA A4C s A-L 20.0 mL/m2 Ao Root d 2.00 cm F: 2.7 - 3.3 LA Vol/ BSA Biplane s A-L 20.7 mL/m2 RA Area A4C 10.18 cm2 LA Area A4C s MOD 13.57 cm2 RA Vol/ BSA A4C s A-L 14.7 mL/m2 LA Area A2C s MOD 11.90 cm2 Ao Asc Diam d 2.30 cm F: 2.3 - 3.1 LV EF A4C MOD 55.7 % LV EF Teichholz 62.2 % LV EF A2C MOD 59.4 % LVEF (Llanos's) 57.83 % F: 54 - 74 LV EF Biplane MOD 57.8 % LV Volume 57.12 mL F: 46 - 106 SV 41.02 mL LV Volume Index 35.04 mL/m2 F: 29 - 61 SV Index 25.05 mL/m2 LV Vol Biplane MOD 70.9 mL FS 33.10 % M-Mode TAPSE 2.07 cm (M/F) >1.7 LV Diastology MV E' medial 0.137 (>0.07 m/s) E/A Ratio 1.5 LV E/e MED 7.45 (<14) MV E Vmax 1.03 (0.4-1.3 m/s) MV E' lateral 0.175 (>0.1 m/s) MV A Vmax 0.70 (0.4-1.3 m/s) LV E/e LAT 5.85 (<14) MV E/A Ratio 1.42 MV E/E' medial 7.50 MV E/E' lateral 5.87 Aortic Valve LVOT Area 2.66 cm2 AoV Area Vmax 2.28 cm2 LVOT Vmax 1.04 m/s AoV Area/ BSA (Vmax) 1.39 cm2/m2 LVOT Mean Jude. 0.72 m/s GIOVANNY Mean Jude. 2.43 cm2 LVOT Peak Grad 4.3 mmHg GIOVANNY Mean Jude. Index 1.48 cm2/m2 LVOT Mean Grad 2.4 mmHg LVOT VTI 0.215 m LVOT Diam s 1.80 cm AoV Vmax 1.21 m/s Velocity Ratio 0.85 AoV Mean Jude. 0.79 m/s AoV Peak Grad 5.9 mmHg LVOT SV 57.20 mL AoV Mean Grad 2.9 mmHg AoV VTI 0.244 m AoV Area VTI 2.34 cm2 AoV Area/ BSA (VTI) 1.43 cm/m2 Mitral Valve MV DT 177 (160-240 msec) MV PHT 51 msec MV Area PHT 4.29 cm2 Pulmonary Valve PV Vmax 1.17 (0.5-1.5 m/s) RVOT Peak Gr. 3.00 mmHg PV Peak Grad 5.4 mmHg RVOT Mean Gr. 1.30 mmHg PV Mean Grad 2.6 mmHg RVOT VTI 0.169 m PV VTI 0.233 m RVOT Vmax 0.87 m/s Tricuspid Valve TR Peak Grad 18.0 mmHg TR Vmax 2.13 m/s RA Pressure 3.00 mmHg RVSP (TR) 21.1 mmHg
== END 2020-01-28 01:48 ==
PROVIDERS: Visit Provider Physician Assistant Medical
DX: R06.02 Shortness of breath (principal)
CPT/HCPCS: 93306

== ENCOUNTER 2021-03-27 15:45 | Outpatient (REF) | payer BC, SELFPAY ==
[2021-03-27 18:20] LABS: *AMPHETAMINES SCREEN URINE Negative (Negative); *BARBITURATES SCREEN URINE Negative (Negative); *BENZODIAZEPINES SCREEN URINE Negative (Negative); Cannabinoids THC Negative (Negative); Cocaine Screen,Urine Negative (Negative); METHADONE URINE SCREEN Negative (Negative); OPIATES URINE SCREEN Negative (Negative)
[2021-03-27 18:24] LABS: Tricyclic Antidepressants Negative (Negative)
== END 2021-03-27 15:46 | disposition home or self-care (01) ==
LOC: LBN 15:45
PROVIDERS: Visit Provider Advanced Practice Midwife
DX: Z32.01 Encounter for pregnancy test, result positive (principal); Z34.91 Encounter for supervision of normal pregnancy, unspecified, first trimester
CPT/HCPCS: 80307; 87086

== ENCOUNTER 2021-04-10 19:58 | Outpatient (CLI) | payer BC, SELFPAY ==
[2021-04-12 15:00] LABS: Chlamydia Result Negative (Negative); GC Result Negative (Negative)
== END 2021-04-10 19:59 | disposition home or self-care (01) ==
LOC: LBO 19:59 → LBN 21:41
PROVIDERS: Visit Provider Advanced Practice Midwife
DX: Z11.8 Encounter for screening for other infectious and parasitic diseases (principal); Z34.91 Encounter for supervision of normal pregnancy, unspecified, first trimester
CPT/HCPCS: 87491; 87591

== ENCOUNTER 2021-05-08 02:29 | Outpatient (CLI) | payer BC, SELFPAY ==
[2021-05-08 13:19] LABS: Abs Immature Grans 0.03 10^3/uL (0.0-0.06); Absolute Lymphocyte Count 2.06 10^3/uL (1.2-3.4); Absolute Monocyte Count 0.57 10^3/uL (0.1-0.8); Absolute Neutrophil Count 8.85 10^3/uL (1.2-6.7); Basophils % 0.3; Eosinophils % 0.3; HCT 37.7 % (36.0-46.0); HGB 12.9 g/dL (11.2-15.7); Immature Grans % 0.3; Lymphocytes % 17.8; MCH 29.2 pg (27.0-33.0); MCHC 34.2 % (32.0-36.0); MCV 85.3 fL (80-95); MPV 10.7 fL (8.0-11.0); Monocytes % 4.9; Neutrophils % 76.4; Nucleated RBC 0 %; Platelet Count 211 10^3/uL (130-400); RBC 4.42 10^6/uL (3.93-5.22); RDW 13.2 % (11.7-14.6); RDW-SD 41.4 fL; WBC 11.59 10^3/uL (4.4-10.8)
[2021-05-08 13:23] LABS: Absolute Basophil Count 0.03 10^3/uL (0.0-0.2); Absolute Eosinophil Count 0.03 10^3/uL (0.0-0.7)
[2021-05-08 14:39] LABS: TSH (W/Ref FT4) 2.69 uIU/mL (0.36-3.74)
[2021-05-09 09:42] LABS: Hepatitis B Surface Ag Negative (Negative); Hepatitis C Ab w Rflx HCV PCR Negative (Negative)
[2021-05-09 10:11] LABS: HIV-1/2 Ag & Ab Screen Negative (Negative)
[2021-05-09 10:28] LABS: Varicella IgG Antibody Positive (See Note)
[2021-05-09 10:35] LABS: Rubella IgG Ab (UVM) Positive (See Note)
[2021-05-09 17:30] LABS: AFP 44.9 ng/mL; Calculated age at EDD 30 years; Cigarette smoking status non-Smoker; GA used in risk estimate Scan estimate; INHIBIN 138 pg/mL; IVF Pregnancy No; Initial or repeat testing Initial testing; Insulin dependent diabetes No; Maternal Weight 128 lbs; Number of Fetuses 1; Prev Down(T21)/Trisomy Pregnan No; Prev Pregnancy w/NTD No; RECOMMENDED FOLLOW UP None.; Results Summary Normal risk; hCG, TOTAL 24.1 IU/mL; hCG, TOTAL MoM 0.73 MoM; uE3 0.85 ng/mL; uE3 MoM 0.71 MoM
[2021-05-10 10:41] LABS: Syphilis Total Ab w/Reflex Nonreactive (Nonreactive)
== END 2021-05-08 02:30 | disposition home or self-care (01) ==
LOC: LBO 02:29
PROVIDERS: Advanced Practice Midwife; Obstetrics & Gynecology Gynecology; Visit Provider Advanced Practice Midwife
DX: Z34.92 Encounter for supervision of normal pregnancy, unspecified, second trimester
CPT/HCPCS: 36415; 81511; 86787; 86803; 86850; 86900; 86901; 87340; 87389; 82105; 84443; 85025; 86762; 86780

== ENCOUNTER 2023-06-21 11:11 | Outpatient (REF) | payer SELFPAY | END 2023-06-21 11:12 | disposition home or self-care (01) | LOC: LBN 11:11 | PROVIDERS: Visit Provider Advanced Practice Midwife | DX: N89.8 Other specified noninflammatory disorders of vagina (principal) | CPT/HCPCS: 87480; 87510; 87660 ==

== ENCOUNTER → 2023-06-27 00:43 | Outpatient (CLI) | payer SELFPAY ==
--- NOTE | 2023-06-27 14:00 | DI.MAMMO_ITS ---
Exam(s) US BREAST LT LIMITED MAMMO DIAGNOSTIC BI EXAM: MAMMO DIAGNOSTIC BI and U/S breast LT limited CLINICAL HISTORY: left breast mass at 3:00,[place],N64.4,N63.20. TECHNIQUE: Craniocaudal and mediolateral oblique Full Field Digital Mammography views with Computer Aided Diagnosis followed by Tomosynthesis and left breast ultrasound. COMPARISON: This is a baseline examination. FINDINGS: Mammography/Tomosynthesis: Masses/Architectural Distortion: None seen. Microcalcifictions: No suspicious pleomorphic-type are seen. Skin Thickening/Nipple Retraction: None. Limited left breast US: Echotexture: Normal appearance of the glandular tissue. Shadowing: No suspicious foci. Cyst: None. Solid lesions: None seen. Ductal dilation: None. IMPRESSION: 1. No evidence of malignancy is noted. 2. Unless there is more urgent need, follow-up screening mammography is recommended, as per [employer] guidelines. 3. The findings were discussed with the patient on the date of the examination. BI-RADS Category 1 - Negative Breast Density - Category C - Heterogeneously dense Breast density Category C or D implies that the patient has dense breast tissue. Dense breast tissue can make it harder to find cancer on a mammogram. Dense breast tissue is also associated with an incr eased risk of breast cancer. This information about the result of the mammogram report was provided to the patient to raise their awareness. Use this report when you speak with the patient about their risks for breast cancer, which includes their family history. At that time, you may recommend additional screening tests (Ultrasoun d or MRI) as these tests may add significant information. A negative radiographic report should not delay biopsy if a dominant or clinically suspicious mass is present. Up to ten percent of cancers are not identified on mammography. A negative report may reinforce clinical impression. Adenosis and dense breasts may obscure an underlying neoplasm. False positive reports average 6 to 10%. Patient will receive a letter notifying them of these results.
== END ==
PROVIDERS: Visit Provider Advanced Practice Midwife
DX: Z12.31 Encounter for screening mammogram for malignant neoplasm of breast (principal); N64.4 Mastodynia; N63.25 Unspecified lump in the left breast, overlapping quadrants
CPT/HCPCS: 76642; 77062; 77066; G0279

== ENCOUNTER 2024-12-09 11:33 | Outpatient (REF) | payer SELFPAY ==
[2024-12-10 12:03] LABS: Chlamydia Result Negative (Negative); GC Result Negative (Negative)
== END 2024-12-09 11:34 | disposition home or self-care (01) ==
LOC: LBN 11:33
PROVIDERS: Visit Provider Obstetrics & Gynecology
DX: N89.8 Other specified noninflammatory disorders of vagina (principal)
CPT/HCPCS: 87491; 87591; 87480; 87510; 87660